=== PATIENT | female | born 1955 | race Caucasian/White ===

== ENCOUNTER 2019-09-11 12:19 | Inpatient (IN) ==
[2019-09-11 14:56] LABS: Basophils % 0.2 % (0.0-0.8); Hematocrit 45.3 VOL% (35.7-47.0); Hemoglobin 14.9 GM/DL (12.0-16.0); Immature Granulocytes % 1.5 %; Immature Granulocytes Absolute 0.21 #; Mean Corpuscular HGB Conc 32.9 GM/DL (32-36); Mean Corpuscular Volume 85.8 FL (87-102); Monocytes % 4.3 % (1.7-12.7); Platelet Count 377 T/CUMM (130-400); Red Blood Count 5.28 MC/CUMM (3.8-5.5); Red Cell Distribution Width 12.7 % (9.3-17.3); White Blood Count 13.8 T/CUMM (4-12)
[2019-09-11] MEDS ORDERED: SODIUM CHLORIDE 0.9% 1,000 ML IV STA ×2 (14:57→17:31)
[2019-09-11 15:15] LABS: Bilirubin,Total 0.4 MG/DL (0.2-1.0); Calcium 9.3 MG/DL (8.5-10.1); Osmolality,Calculated 292.1 MOS/KG (273-304); Total Protein 7.9 G/DL (6.4-8.3)
[2019-09-11] MEDS ORDERED: ONDANSETRON 4 MG/2 ML VIAL IV STA (15:35)
[2019-09-11 16:29] LABS: Lymphocytes 3 % (20-55); Segmented Neutrophils 92 % (50-85); Total Cells Counted 100
[2019-09-11 16:31] LABS: Platelet Estimate Adequate
[2019-09-11 18:53] LABS: Apearance,Urine CLEAR (Clear); Bilirubin,Urine Negative (Negative); Blood, Urine Negative (Negative); Glucose,Urine (UA) >=500 mg/dL (Negative); Ketones,Urine 20 mg/dL (Negative); Nitrite,Urine Negative (Negative); Protein,Urine Negative; RBC,Urine 2 /HPF (0-4); Squamous Epithelial Cell,Urine Occasional /HPF (0-10); Urine Color Straw (Yellow); Urine Urobilinogen < 2.0 EU/DL (0.2-1.0); WBC,Urine <1 /HPF (0-6)
[2019-09-11] MEDS ORDERED: DEXTROSE 50% 25 GM/50 ML VIAL IV PRN ×2 (19:51)
[2019-09-11] MEDS ORDERED: GLUCAGON 1 MG VIAL IM PRN (19:51)
[2019-09-12] MEDS ORDERED: SODIUM CHLORIDE 0.9% 100 ML IV ONE (00:36)
[2019-09-12] MEDS: INSULIN REGULAR 100 UNIT/ML SUBCUT SCH ×5 (00:49→21:01)
[2019-09-12] MEDS: ENOXAPARIN 40 MG/0.4 ML SYRINGE SUBCUT SCH ×2 (00:50→21:02)
[2019-09-12] MEDS: cefTRIAXone 1,000 MG in SYRINGE 1 EACH IV SCH ×2 (00:50→21:02)
[2019-09-12] MEDS: PANTOPRAZOLE 40 MG TABLET PO SCH (09:24)
[2019-09-12 09:32] LABS: Basophils % 0.2 % (0.0-0.8); Hematocrit 40.5 VOL% (35.7-47.0); Hemoglobin 13.1 GM/DL (12.0-16.0); Immature Granulocytes % 1.8 %; Immature Granulocytes Absolute 0.18 #; Lymphocytes # 1.3 10*3/uL (1.4-4.0); Lymphocytes % 13.3 % (21.3-54.2); Mean Corpuscular HGB Conc 32.3 GM/DL (32-36); Mean Corpuscular Volume 86.5 FL (87-102); Mean Platelet Volume 9.8 FL (9.6-12.0); Monocytes % 9.5 % (1.7-12.7); Neutrophils % 75.2 % (38.7-73.9); Platelet Count 289 T/CUMM (130-400); Red Blood Count 4.68 MC/CUMM (3.8-5.5); Red Cell Distribution Width 12.6 % (9.3-17.3); White Blood Count 9.8 T/CUMM (4-12)
[2019-09-12 09:58] LABS: Calcium 8.2 MG/DL (8.5-10.1); Osmolality,Calculated 292.4 MOS/KG (273-304); Risk Ratio 8.09
[2019-09-12 10:03] LABS: Anisocytosis 1+; Band Neutrophils 7 % (0-10); Lymphocytes 9 % (20-55); Metamyelocytes 1 %; Platelet Estimate Normal; Segmented Neutrophils 71 % (50-85); Total Cells Counted 100
[2019-09-12] MEDS: metFORMIN 500 MG TABLET PO SCH (18:00)
[2019-09-12] MEDS: AZITHROMYCIN INJ 250 MG in SODIUM CHLORIDE 0.9% 250 ML IV SCH (18:00)
[2019-09-13 05:44] LABS: Basophils # 0.1 10*3/uL (0.0-0.2); Basophils % 0.5 % (0.0-0.8); Eosinophils % 0.3 % (0.00-10.9); Hematocrit 39.3 VOL% (35.7-47.0); Hemoglobin 12.8 GM/DL (12.0-16.0); Immature Granulocytes % 2.5 %; Immature Granulocytes Absolute 0.24 #; Lymphocytes # 2.5 10*3/uL (1.4-4.0); Lymphocytes % 26.3 % (21.3-54.2); Mean Corpuscular HGB Conc 32.6 GM/DL (32-36); Mean Corpuscular Volume 86.9 FL (87-102); Mean Platelet Volume 9.9 FL (9.6-12.0); Monocytes % 9.5 % (1.7-12.7); Neutrophils % 60.9 % (38.7-73.9); Platelet Count 280 T/CUMM (130-400); Red Blood Count 4.52 MC/CUMM (3.8-5.5); Red Cell Distribution Width 12.5 % (9.3-17.3); White Blood Count 9.5 T/CUMM (4-12)
[2019-09-13 06:03] LABS: Calcium 7.8 MG/DL (8.5-10.1); Osmolality,Calculated 284.4 MOS/KG (273-304)
[2019-09-13] MEDS: INSULIN REGULAR 100 UNIT/ML SUBCUT SCH ×4 (07:08→21:09)
[2019-09-13] MEDS ORDERED: POTASSIUM CHLORIDE 20 MEQ TABLET PO ONE (07:41)
[2019-09-13] MEDS: metFORMIN 500 MG TABLET PO SCH ×2 (08:30→16:40)
[2019-09-13] MEDS: ZINC SULFATE 220 MG CAPSULE PO SCH (08:30)
[2019-09-13] MEDS: PANTOPRAZOLE 40 MG TABLET PO SCH (08:30)
[2019-09-13] MEDS: FENOFIBRATE 160 MG TABLET PO SCH (08:30)
[2019-09-13 08:38] LABS: Anisocytosis Slight; Platelet Estimate Normal
[2019-09-13] MEDS ORDERED: LORATADINE 10 MG TABLET PO PRN (11:10)
[2019-09-13] MEDS: ENOXAPARIN 100 MG/ML SYRINGE SUBCUT SCH (12:25)
[2019-09-13] MEDS: ALBUTEROL INHALER 18 GM INH SCH ×2 (12:25→18:05)
[2019-09-13] MEDS: lisinopriL 10 MG TABLET PO SCH (14:10)
[2019-09-13] MEDS: AZITHROMYCIN INJ 250 MG in SODIUM CHLORIDE 0.9% 250 ML IV SCH (16:40)
[2019-09-13] MEDS: OMEGA 3 ACID ETHYL ESTERS 1 GM CAPSULE PO SCH (21:08)
[2019-09-13] MEDS: CALCIUM (CARBONATE) 600 MG TABLET PO SCH (21:08)
[2019-09-13] MEDS: cefTRIAXone 1,000 MG in SYRINGE 1 EACH IV SCH (21:14)
[2019-09-14] MEDS: ALBUTEROL INHALER 18 GM INH SCH ×2 (01:07→06:28)
[2019-09-14 05:39] LABS: Basophils # 0.1 10*3/uL (0.0-0.2); Basophils % 0.9 % (0.0-0.8); Eosinophils # 0.1 10*3/uL (0.0-0.87); Eosinophils % 1.5 % (0.00-10.9); Immature Granulocytes Absolute 0.39 #; Lymphocytes # 1.9 10*3/uL (1.4-4.0); Lymphocytes % 28.5 % (21.3-54.2); Mean Corpuscular HGB Conc 33.3 GM/DL (32-36); Mean Corpuscular Volume 85.5 FL (87-102); Mean Platelet Volume 9.7 FL (9.6-12.0); Monocytes % 11.6 % (1.7-12.7); Neutrophils % 51.5 % (38.7-73.9); Platelet Count 254 T/CUMM (130-400); Red Blood Count 4.56 MC/CUMM (3.8-5.5); Red Cell Distribution Width 12.4 % (9.3-17.3); White Blood Count 6.6 T/CUMM (4-12)
[2019-09-14 05:54] LABS: Osmolality,Calculated 281.3 MOS/KG (273-304)
[2019-09-14 06:26] LABS: Band Neutrophils 1 % (0-10); Eosinophils 1 % (0-10); Hypochromasia 1+; Lymphocytes 30 % (20-55); Platelet Estimate Adequate; Segmented Neutrophils 57 % (50-85); Total Cells Counted 100
[2019-09-14] MEDS ORDERED: AZITHROMYCIN 250 MG TABLET PO SCH (09:00)
[2019-09-14] MEDS ORDERED: AZITHROMYCIN INJ 250 MG in SODIUM CHLORIDE 0.9% 250 ML IV SCH (09:00)
[2019-09-14] MEDS: ZINC SULFATE 220 MG CAPSULE PO SCH (09:10)
[2019-09-14] MEDS: INSULIN REGULAR 100 UNIT/ML SUBCUT SCH ×2 (09:10→12:15)
[2019-09-14] MEDS: PANTOPRAZOLE 40 MG TABLET PO SCH (09:10)
[2019-09-14] MEDS: metFORMIN 500 MG TABLET PO SCH (09:11)
[2019-09-14] MEDS: FENOFIBRATE 160 MG TABLET PO SCH (09:11)
[2019-09-14] MEDS: CALCIUM (CARBONATE) 600 MG TABLET PO SCH (09:11)
[2019-09-14] MEDS: lisinopriL 10 MG TABLET PO SCH (09:11)
[2019-09-14] MEDS: OMEGA 3 ACID ETHYL ESTERS 1 GM CAPSULE PO SCH (09:12)
[2019-09-14] MEDS: ENOXAPARIN 100 MG/ML SYRINGE SUBCUT SCH (12:16)
[2019-09-14 13:18] VITALS: BP 140/80
[2019-09-16 00:26] LABS: Specimen Source THROAT
== END 2019-09-14 13:20 | disposition home or self-care (01) | DRG 177 ==
LOC: N.ED 12:19 → N.EDINP 19:51 → N.2E 09-12 16:47
PROVIDERS: ADMIT Hospitalist; ATTEND Hospitalist